=== PATIENT | male | born 1965 | race Caucasian/White ===

== ENCOUNTER 2016-10-18 08:52 | Emergency (ER) ==
[2016-10-18] MEDS ORDERED: DILAUDID IM ONE (09:38)
[2016-10-18] MEDS ORDERED: PHENERGAN IM ONE (09:38)
--- NOTE | 2016-10-18 09:41 | PROVIDER DOCUMENTATION ---
HPI-Headache - General Chief Complaint: Headache Stated Complaint: MIGRAINE Time Seen by Provider: 10/18/16 09:13 Source: patient, family Allergies/Adverse Reactions: Patient Allergies Allergy/AdvReac Type Severity Reaction Status Date / Time No Known Allergies Allergy Verified 10/18/16 09:07 Home Medications: Home Medication List Medication Instructions Recorded Confirmed Last Taken Type Gabapentin 600 mg PO 4XDAY 06/21/15 10/18/16 10/18/16 06:00 History Loperamide HCl [Anti-Diarrheal] 2 mg PO QAM 06/21/15 10/18/16 10/18/16 06:00 History Magnesium Oxide 400 mg PO QAM 06/21/15 10/18/16 10/18/16 06:00 History Rivaroxaban [Xarelto] 20 mg PO QAM 06/21/15 10/18/16 10/18/16 06:00 History Sertraline HCl 200 mg PO QAM 06/21/15 10/18/16 10/18/16 06:00 History Sumatriptan Succinate [Imitrex] 6 mg SQ DIRECTED 06/21/15 10/18/16 10/18/16 04:00 History Hydroxyzine Pamoate [Vistaril] 50 mg PO BID PRN 09/29/15 10/18/16 10/18/16 06: 00 History Methocarbamol 500 mg PO PRN PRN 04/04/16 10/18/16 10/16/16 02:30 History Ketorolac [Toradol] 60 mg IM ORDERED 06/10/16 10/18/16 10/18/16 06:00 History Cyproheptadine HCl 10 mg PO QAM 09/12/16 10/18/16 10/18/16 06:00 History Losartan [Cozaar] 25 mg PO QAM 09/12/16 10/18/16 10/18/16 06:00 History Riboflavin [Vitamin B-2] 100 mg PO 4XDAY 10/18/16 10/18/16 10/18/16 06:00 History - History of Present Illness-Headache Nature of Presenting Problem: 51 year old WM with a 20+ year history of migraine headaches (chemical exposure in the ) in the presents with c/o of a migraine. pain is right temporal/ right side of head, non-radiating, stabbing, feels like a "knife stabbing me." pt reports he has tried home toradol, imitrex, and others without relief. pain is constant, started Friday night when he was exposed to some perfume, pt reports associated photophobia, sound and smell sensitivity. pt reports this is the same migraine headache he has been experiencing for 20 years. he was evaluated by his neurologist last month (has appointment in 3 weeks for re-check ), he reports his neurologist recommends he present to the ED when his home meds are not effective with pain relief. pt reports he called his PMD this morning at the [facility] and they recommend ED visit. Upon completion of the H&P, I reviewed the new policy for chronic pain management in this ED, I reported to him in the future, most likely non- narcotic pain medications would be offered. I discussed with him the need to establish a plan with his neurologist/PCP to address these chronic headaches. I informed him dilaudid and phenergan both come in pill form. He reports he has asked his PCP about this and they will only prescribe dilaudid to cancer patients. Headache Location: reports: frontal, temporal, parietal Head/Neck: 1 - headache Quality of Pain: reports: sharp, stabbing Severity: reports: mild Onset/Duration: reports: 3 days ago Timing: reports: still present, constant, getting worse Headache Context: reports: nothing. denies: CO exposure, tick bite(s), insect bite(s), head injury, meningitis exposure, while turning/twisting head Headache History: reports: frequent headaches, chronic headaches, history of migraines. denies: head trauma < 24 hrs ago, head trauma > 24 hrs ago Any recent trauma/injury?: reports: none Headache severity at the maximum: mild Preceding Symptoms: reports: visual disturbances. denies: scotoma, aura(s) Headache Exacerbated by:: reports: light, noise, movement Modifying Factors: worse with: analgesics Associated Symptoms: reports: nausea, vision changes. denies: short of breath, decreased ability to walk or stand, fainting, dizziness, confusion, chest pain, neck/back pain, fever/chills, loss of consciousness, muscle spasms, numbness in legs/feet, paresthesia, ringing in ears, seizures, slurred speech, tingling in legs/feet, trouble walking, vomiting, weakness Similar Symptoms Previously?: Yes Recently seen or treated by another doctor?: Yes Review of Systems - Adult - REVIEW OF SYSTEMS - ADULT Constitutional: reports: no symptoms reported. denies: chills, fever, fatique Eyes: reports: see HPI, other (photophobia). denies: discharge, dry eyes, decreased vision, blurred vision, double vision, eye pain, redness Ears, Nose, Mouth & Throat: reports: no symptoms reported. denies: ear discharge, ear pain, epistaxis, nose pain, loose teeth, throat pain, throat swelling Cardiovascular: reports: no symptoms reported. denies: chest pain, palpitations , syncope Respiratory: reports: no symptoms reported. denies: chronic cough, cough, shortness of breath, wheezing Gastrointestinal: reports: no symptoms reported. denies: abdominal pain, diarrhea, nausea, vomiting Genitourinary: reports: no symptoms reported. denies: dysuria, hematuria, urgency Musculoskeletal: reports: no symptoms reported. denies: bone pain, joint pain, joint swelling, neck pain Integumentary: reports: no symptoms reported. denies: hives, itching, rash, skin sores/ulcer Neurological: reports: see HPI, headache/migraines. denies: ataxia, dizziness/ vertigo, loss of balance, numbness, paresthesia, seizure, slurred speech, syncope, tremors Psychiatric: reports: no symptoms reported. denies: anxiety, anti-depressant use Endocrine: reports: no symptoms reported Hematologic/Lymphatic: reports: no symptoms reported Allergic/Immunologic: reports: no symptoms reported All Other Systems: Reviewed and Negative Past History - Adult - PAST MEDICAL HISTORY-ADULT Review of Records: reports: Old Records Reviewed, Nursing Assessment Review, Medications Reviewed, Social history reviewed & non-contributory. Major Childhood Illnesses: reports: denies history Cardiovascular: reports: blood clots (DVTs 10 years ago, on xarelto), HTN, pacemaker (s/p ablation) Respiratory: reports: sleep apnea Gastrointestinal: reports: denies history Obstetrical/Gynecological: reports: denies history Genitourinary: reports: denies history Musculoskeletal: reports: denies history Neurological: reports: headaches/migraines Endocrine/Immune: reports: denies history Other Conditions: reports: denies history - PRIOR SURGERIES/PROCEDURES Surgical/Procedure History: reports: reviewed, not pertinent - IMMUNIZATION STATUS Childhood Immunizations: See Nurse Assessment Flu Vaccine: See Nurse Assessment - FAMILY HISTORY Family History: reviewed, not pertinent - SOCIAL HISTORY Smoking: denies, non-smoker Substance Use: none/never Alcohol Use Frequency: never Physical Exam- Neurological - Physical Exam-Neuro Initial Vital Signs Reviewed: Yes General Appearance: appears well, alert, mild distress. negative: no apparent distress, moderate distress, severe distress, lethargic, slow to respond, obtunded, combative Eye Exam: bilateral eye: normal inspection, PERRL, EOMI HENMT: normocephalic/atraumatic, moist mucous membranes, normal ENT inspection. negative: frontal tenderness, maxillary tenderness Head Injury: no evidence of injury. negative: active bleeding, Tellez's Sign, contusions, ecchymosis, flap, lacerations, raccoon eyes, swelling, tenderness Face: 1 - headache location Neck: non-tender, full range of motion, supple, normal inspection. negative: C- spine tenderness, limited range of motion, tender lateral, tender midline Respiratory: chest non-tender, lungs clear, normal breath sounds, no pleuratic chest pain, no respiratory distress, no accessory muscle use. negative: respiratory distress, decreased breath sounds, accessory muscle use, crackles, rales, rhonchi, stridor, wheezing Cardiovascular: normal peripheral pulses, regular rate, rhythm, no edema, no gallop Abdominal Exam: normal bowel sounds, non tender, soft. negative: distended, guarding, rigid, tenderness Lymphatic: no adenopathy Peripheral Pulses: radial (R): 3+, radial (L): 3+, dorsalis-pedis (R): 3+, dorsalis-pedis (L): 3+ Extremity: normal range of motion, non-tender, normal gait, normal inspection, no pedal edema, no calf tenderness, normal capillary refill security operations manager Exam: normal hearing, normal speech, PERRL. negative: abnormal eye position , abnormal gag reflex, abnormal pupil position, abnormal speech, facial asymmetry, facial droop, facial paresthesias, facial weakness, gaze palsy, tongue deviation to R, tongue deviation to L Coordination/Gait: normal gait, negative Romberg's sign. negative: abnormal gait Motor/Sensory: no motor deficit, no sensory deficit, no pronator drift. negative: pronator drift (R), pronator drift (L), sensory deficit, weak motor strength RUE, weak motor strength LUE, weak motor strength RLE, weak motor strength LLE Neurologic: security operations manager II-XII nml as tested, grossly normal, no motor/sensory deficits , negative romberg's sign. negative: abnormal cerebellar tests, abnormal security operations manager II -XII, abnormal gait, aphasia, EOM palsy, facial droop, focal weakness, motor weakness, sensory deficit, positive romberg's sign Integumentary: normal color, normal turgor, warm/dry. negative: pallor, petechiae, purpura, rash Psych/Mental Status: normal mood/affect, normal thought content, normal thought process, oriented x 3 - Glascow Coma Scale Best Eye Response: (4) open spontaneously Best Verbal Response: (5) oriented Best Motor Response: (6) obeys commands Total Glascow Score: 15 Progress - PLAN OF CARE/RESULTS Progress/Plan/Lab Results: Orders Category Date Time Status Hydromorphone [Dilaudid] Med 10/18/16 09:38 Discontinued 2 mg IM NOW ONE Promethazine [Phenergan] Med 10/18/16 09:38 Discontinued 25 mg IM NOW ONE Vital Signs - 24 hr 10/18/16 08:55 Temperature 97.3 F L Pulse Rate 79 Respiratory 18 Rate Blood Pressure 131/84 O2 Sat by Pulse 97 Oximetry Departure - Departure Time of Disposition Order: 09:39 DIAGNOSIS: Migraine Qualifiers: Migraine type: unspecified Status migrainosus presence: without status migrainosus Intractability: not intractable Qualified Code(s): G43.909 - Migraine, unspecified, not intractable, without status migrainosus Disposition: HOME 01 Certified Medical Emergency: Emergent Condition: Stable Additional Instructions: Follow up with your primary care doctor at the [facility] and your neurologist for additional evaluation, Dilaudid and phenergan can be prescribed in pill form. ED Follow Up Instructions: You have been treated by a care provider in the Emergency Department. These instructions are being provided to you so you can have an understanding of how to care for yourself upon discharge. Upon discharge from the Emergency Department, you are responsible for making arrangements for follow-up care by a physician of your choice. Take all prescribed medications as directed. Return to the Emergency Department immediately for any new or worsening symptoms. You may call the Physician Referral phone number at [phone] to obtain a list of Physicians who are taking new patients. Referrals: None,PCP [Primary Care Provider] - Attestation - Physician/ EPI Attestation Patient care was provided by Advanced Practice Provider:: Yes Advanced Practice Provider:: Roger Hayden Advanced Practice Provider documentation review:: The Mid-level provider documentation, treatment plan and medical decision making was reviewed by the physician who agrees with all treatment and medical decision making by the MLP.
[2016-10-18 09:49] VITALS: BP 136/86
== END 2016-10-18 09:59 | disposition home or self-care (01) ==
LOC: ED 08:52
DX: G43.909 Migraine, unspecified, not intractable, without status migrainosus (principal); R51 Headache; H53.149 Visual discomfort, unspecified; G89.29 Other chronic pain; I10 Essential (primary) hypertension; Z79.01 Long term (current) use of anticoagulants; Z79.899 Other long term (current) drug therapy; Z86.718 Personal history of other venous thrombosis and embolism
CPT/HCPCS: J1170; J2550